=== PATIENT | male | born 1985 | race Caucasian/White ===

== ENCOUNTER → 2017-02-07 | Outpatient (CLI) | payer OTHER ==
[~2017-02-07] MED LIST: LEVAQUIN PO; NASONEX17 GM; PEN-VEE K PO; ROBITUSSIN ALL118 ML PO; STAHIST TA1 TAB.SR . PO; VICODIN 5/500 T1 TAB PO; ZITHROMAX PO; [UNRECOGNIZED DRUG - REMARK]
--- NOTE | ~2017-02-07 | CR21 ---
[facility] A Service of [facility] & [facility] RADIOLOGY TEXT RESULTS PATIENT: CHIKIS GARCIA LOCATION: [facility] : 87 UNIT #: [id number] AGE: [address]: Gabriella KunzP SEX: M ORDER DR: [id number] [facility] [address] [place], [place] [address] [id number] O MR#: [id number] Acc #: [id number] NAME: CHIKIS GARCIA : 1985 SEX: M STUDY DATE/TIME: 02/07/2017 16:23 UNIT: [facility] ROOM: STUDY DESCRIPTION: CR Ankle Min 3 Views Rt Attending Physician: Gabriella Kunz A.P.R.N. Referring Physician: Gabriella Kunz A.P.R.N. Ordering Physician: Gabriella Kunz A.P.R.N. Primary Care Physician: Primary Care Physician No MEDICAL IMAGING REPORT This report is preliminary unless electronic signature is present EXAM Right ankle 3 views 02/07/2017 HISTORY Right ankle pain for 1 month with no known injury. FINDINGS AP, lateral, and oblique projections of the ankle show satisfactory integrity of the joint mortise with a smooth articular surface. There is no identifiable fracture, dislocation, or radiopaque foreign body. IMPRESSION Normal ankle. Dictated by... David Bardales M.D. THIS IS AN ELECTRONICALLY VERIFIED REPORT David Bardales M.D. at 02/10/2017 8:09 AM KRT/pcl TD: 02/08/2017 00:03 JOB #: [id number] MEDICAL IMAGING REPORT Page 1 of 1 COPY
--- NOTE | ~2017-02-07 | CR127 ---
[facility] A Service of [facility] & [facility] RADIOLOGY TEXT RESULTS PATIENT: CHIKIS GARCIA LOCATION: [facility] : 86 UNIT #: [id number] AGE: [address]: Gabriella KunzP SEX: M ORDER DR: [id number] [facility] [address]. [place], [place] [address] [id number] O MR#: [id number] Acc #: [id number] NAME: CHIKIS GARCIA : 1985 SEX: M STUDY DATE/TIME: 02/07/2017 16:26 UNIT: [facility] ROOM: STUDY DESCRIPTION: CR Foot Complete Min 3 View Rt Attending Physician: Gabriella Kunz A.P.R.N. Referring Physician: Gabriella Kunz A.P.R.N. Ordering Physician: Gabriella Kunz A.P.R.N. MEDICAL IMAGING REPORT This report is preliminary unless electronic signature is present EXAM Right foot, 3 views, 02/07/2017 HISTORY Right foot pain for 1 month with no known injury. FINDINGS The tarsal, metatarsal, and phalangeal elements are all anatomically normal in position and alignment. There are no articular defects. No fractures or radiopaque foreign bodies in the soft tissues are apparent. IMPRESSION Normal foot. Dictated by... David Bardales M.D. THIS IS AN ELECTRONICALLY VERIFIED REPORT David Bardales M.D. at 02/08/2017 6:18 AM KRT/pcl TD: 02/08/2017 00:03 JOB #: [id number] MEDICAL IMAGING REPORT Page 1 of 1 COPY
--- NOTE | ~2017-02-07 | US84 ---
[id number] [facility] [address] [place], [place] [address] [id number] O MR#: [id number] Acc #: [id number] NAME: CHIKIS GARCIA : 1985 SEX: M STUDY DATE/TIME: 02/07/2017 15:45 UNIT: [facility] ROOM: STUDY DESCRIPTION: US LE Veins Complete Albaro Stdy Attending Physician: Gabriella Kunz A.P.R.N. Referring Physician: Gabriella Kunz A.P.R.N. Ordering Physician: Gabriella Kunz A.P.R.N. MEDICAL IMAGING REPORT This report is preliminary unless electronic signature is present EXAM Bilateral lower extremity venous duplex 02/07/2017 HISTORY Bilateral lower extremity pain and edema for 1 month. Evaluate for deep vein thrombosis. TECHNIQUE Venous ultrasound examination of both lower extremities was performed using grayscale, spectral Doppler and color flow Doppler imaging. FINDINGS The examination is negative. There is no evidence of deep venous thrombus from the groin to the lower calf bilaterally. Visualized greater saphenous veins are also patent. IMPRESSION Negative examination. No evidence of lower extremity deep venous thrombosis. Dictated by... David Bardales M.D. THIS IS AN ELECTRONICALLY VERIFIED REPORT David Bardales M.D. at 02/08/2017 6:17 AM CORRINE/jesus TD: 02/07/2017 22:29 JOB #: [id number] MEDICAL IMAGING REPORT Page 1 of 1 COPY
--- NOTE | ~2017-02-07 | CR169 ---
[facility] A Service of [facility] & [facility] RADIOLOGY TEXT RESULTS PATIENT: CHIKIS GARCIA LOCATION: [facility] : 86 UNIT #: [id number] AGE: [address]: Gabriella KunzP SEX: M ORDER DR: [id number] [facility] [address]. [address] [id number] O MR#: [id number] Acc #: [id number] NAME: CHIKIS GARCIA : 1985 SEX: M STUDY DATE/TIME: 02/07/2017 16:34 UNIT: [facility] ROOM: STUDY DESCRIPTION: CR Knee 2 Views Lt Attending Physician: Gabriella Kunz A.P.R.N. Referring Physician: Gabriella Kunz A.P.R.N. Ordering Physician: Gabriella Kunz A.P.R.N. MEDICAL IMAGING REPORT This report is preliminary unless electronic signature is present EXAM Left knee 2 views 02/07/2017 HISTORY Left knee pain for 1 month with no known injury. FINDINGS AP and lateral projection of the knee shows smooth articular anatomy without indication of fracture or dislocation at the major weight-bearing surface of the knee. There is no indication of radiopaque foreign body about the knee surface or joint effusion. IMPRESSION Normal knee. Dictated by... David Bardales M.D. THIS IS AN ELECTRONICALLY VERIFIED REPORT David Bardales M.D. at 02/08/2017 6:18 AM KRT/pcl TD: 02/08/2017 00:01 JOB #: [id number] MEDICAL IMAGING REPORT Page 1 of 1 COPY
--- NOTE | ~2017-02-07 | CR170 ---
[facility] A Service of [facility] & [facility] RADIOLOGY TEXT RESULTS PATIENT: CHIKIS GARCIA LOCATION: [facility] : 87 UNIT #: [id number] AGE: [address]: Gabriella KunzP SEX: M ORDER DR: [id number] [facility] [address] [place], [place] [address] [id number] O MR#: [id number] Acc #: [id number] NAME: CHIKIS GARCIA : 1985 SEX: M STUDY DATE/TIME: 02/07/2017 16:32 UNIT: [facility] ROOM: STUDY DESCRIPTION: CR Knee 2 Views Rt Attending Physician: Gabriella Kunz A.P.R.N. Referring Physician: Gabriella Kunz A.P.R.N. Ordering Physician: Gabriella Kunz A.P.R.N. Primary Care Physician: Primary Care Physician No MEDICAL IMAGING REPORT This report is preliminary unless electronic signature is present EXAM Right knee 2 views, 02/07/2017 HISTORY Right knee pain for 1 month with no known injury. FINDINGS 2 views of the right knee demonstrate no fracture. The bones are normally mineralized. Joint space is normally maintained. There is a small knee joint effusion. IMPRESSION Small knee joint effusion. No evidence of fracture. Dictated by... David Bardales M.D. THIS IS AN ELECTRONICALLY VERIFIED REPORT David Bardales M.D. at 02/08/2017 6:18 AM CORRINE/best TD: 02/08/2017 00:06 JOB #: [id number] MEDICAL IMAGING REPORT Page 1 of 1 COPY
--- NOTE | ~2017-02-07 | CR20 ---
[facility] A Service of [facility] & [facility] RADIOLOGY TEXT RESULTS PATIENT: CHIKIS GARCIA LOCATION: [facility] : 87 UNIT #: [id number] AGE: [address]: Gabriella KunzP SEX: M ORDER DR: [id number] [facility] [address] [place], [place] [address] [id number] O MR#: [id number] Acc #: [id number] NAME: CHIKIS GARCIA : 1985 SEX: M STUDY DATE/TIME: 02/07/2017 16:19 UNIT: [facility] ROOM: STUDY DESCRIPTION: CR Ankle Min 3 Views Lt Attending Physician: Gabriella Kunz A.P.R.N. Referring Physician: Gabriella Kunz A.P.R.N. Ordering Physician: Gabriella Kunz A.P.R.N. MEDICAL IMAGING REPORT This report is preliminary unless electronic signature is present EXAM Left ankle 3 views 02/07/2017 HISTORY Left ankle pain for 1 month with no known injury. FINDINGS AP, lateral, and oblique projections of the ankle show satisfactory integrity of the joint mortise with a smooth articular surface. There is no identifiable fracture, dislocation, or radiopaque foreign body. IMPRESSION Normal ankle. Dictated by... David Bardales M.D. THIS IS AN ELECTRONICALLY VERIFIED REPORT David Bardales M.D. at 02/08/2017 6:18 AM KRT/pcl TD: 02/08/2017 00:02 JOB #: [id number] MEDICAL IMAGING REPORT Page 1 of 1 COPY
--- NOTE | ~2017-02-07 | CR126 ---
[facility] A Service of [facility] & [facility] RADIOLOGY TEXT RESULTS PATIENT: CHIKIS GARCIA LOCATION: [facility] : 87 UNIT #: [id number] AGE: [address]: Gabriella Kunz SEX: M ORDER DR: [id number] [facility] [address]. [address] [id number] O MR#: [id number] Acc #: [id number] NAME: CHIKIS GARCIA : 1985 SEX: M STUDY DATE/TIME: 02/07/2017 16:28 UNIT: [facility] ROOM: STUDY DESCRIPTION: CR Foot Complete Min 3 View Lt Attending Physician: Gabriella Kunz A.P.R.N. Referring Physician: Gabriella Kunz A.P.R.N. Ordering Physician: Gabriella Kunz A.P.R.N. MEDICAL IMAGING REPORT This report is preliminary unless electronic signature is present EXAM Left foot 3 views 02/07/2017 HISTORY Left foot pain for 1 month with no known injury. FINDINGS The tarsal, metatarsal, and phalangeal elements are all anatomically normal in position and alignment. There are no articular defects. No fractures or radiopaque foreign bodies in the soft tissues are apparent. IMPRESSION Normal foot. Dictated by... David Bardales M.D. THIS IS AN ELECTRONICALLY VERIFIED REPORT David Bardales M.D. at 02/08/2017 6:18 AM KRT/pcl TD: 02/08/2017 00:05 JOB #: [id number] MEDICAL IMAGING REPORT Page 1 of 1 COPY
== END | disposition home or self-care (01) ==
LOC: CGUS 15:15
DX: M25.562 Pain in left knee (principal); M25.561 Pain in right knee; M79.672 Pain in left foot; M79.671 Pain in right foot; M25.461 Effusion, right knee
CPT/HCPCS: 73560; 73610; 73630; 93970